=== PATIENT | female | born 1980 | race Caucasian/White ===

== ENCOUNTER 2016-08-26 20:38 | Emergency (ER) | payer OTHER ==
[2016-08-26] MEDS ORDERED: Sodium Chloride 0.9% 1,000 ML IV STA (21:15)
--- NOTE | 2016-08-26 21:29 | C.PDOC ---
History Of Present Illness Patient is a 35 year old female with a history of thyroid disease and childhood asthma who presents to the ER with a complaint of general weakness for the past 4 days. Patient states the first day she began having non-bloody, non-billious vomiting and non-bloody diarrhea that stopped yesterday. Patient also reports having intermittent, scattered abdominal pain and a subjective feeling of hot and cold flashes. Patient notes she is currently menstruating and it is at it's normal time and flow. Denies fever or sick contact. Time Seen by Provider: 08/26/16 20:52 Chief Complaint (Nursing): Abdominal Pain History Per: Patient History/Exam Limitations: no limitations Onset/Duration Of Symptoms: Days (4), Intermittent Episodes (Abdominal pain) Associated Symptoms: Vomiting (non-billious, non-bloody), Diarrhea (non-bloody) . denies: Fever Last Menstral Period: Currently mentruating Past Medical History Reviewed: Historical Data, Nursing Documentation, Vital Signs Vital Signs: Last Vital Signs Temp 97.8 F 08/26/16 20:48 Pulse 78 08/26/16 20:48 Resp 18 08/26/16 20:48 BP 126/80 08/26/16 20:48 Pulse Ox 98 08/26/16 21:39 - Medical History PMH: Asthma, Hypothyroidism Surgical History: Tonsillectomy Family History: States: Unknown Family Hx - Social History Hx Tobacco Use: No Hx Alcohol Use: No Hx Substance Use: No - Immunization History Hx Tetanus Toxoid Vaccination: No Hx Influenza Vaccination: No Hx Pneumococcal Vaccination: No Review Of Systems Constitutional: Negative for: Fever Gastrointestinal: Positive for: Vomiting (non-bloody, non-billious), Diarrhea ( Non-bloody) Physical Exam - Physical Exam Additional Physical Exam Comments: Constitutional: No acute distress. Head: Normocephalic. Atraumatic. Eyes: PERRL. ENT: Dry mucous membranes. Neck: Supple. Cardiovascular: Regular rate. Radial pulses 2+ bilaterally. Chest: No tenderness. Respiratory: Clear to auscultation bilaterally. GI: Soft. No tenderness. Nondistended. Back: No tenderness. Musculoskeletal: No tenderness or swelling of extremities. Skin: No rash. Neurologic: Alert, no focal deficit. ED Course And Treatment - Laboratory Results Result Diagrams: 08/26/16 21:47 08/26/16 21:47 O2 Sat by Pulse Oximetry: 98 Medical Decision Making Medical Decision Making: Will hydrate, zofran PO challenge will be ordered. Will check labs and urine, no current indication for imaging at this moment, normal vital signs, no abdominal tenderness. Labs unremarkable, patient in no distress and states feels better. PO challenged. Will discharge, continue PO hydration, return to ER for worsening weakness, lethargy, vomiting, dyspnea, abdominal pain, or any other problem. Disposition - Disposition Referrals: Jameson Saucedo MD [Primary Care Provider] - Disposition: HOME/ ROUTINE Disposition Time: 23:36 Condition: STABLE Prescriptions: Ondansetron ODT [Zofran ODT] 4 mg PO Q8 #12 odt Instructions: Gastroenteritis (ED) - Clinical Impression Clinical Impression: Diarrhea, Vomiting - Scribe Statement The provider has reviewed the documentation as recorded by the Scribe Ayush Tovar All medical record entries made by the Scribe were at my direction and personally dictated by me. I have reviewed the chart and agree that the record accurately reflects my personal performance of the history, physical exam, medical decision making, and the department course for this patient. I have also personally directed, reviewed, and agree with the discharge instructions and disposition.
[2016-08-26 21:52] LABS: BASO % 0.7 % (0.0-2.0); EOS # 0.3 K/uL (0.0-0.7); EOS % 6.3 % (0.0-4.0); HEMATOCRIT 38.2 % (34.0-47.0); LYMPH # 1.9 K/uL (1.0-4.3); LYMPH % 36.3 % (20.0-40.0); MEAN CELL VOLUME 82.4 fL (81.0-99.0); MEAN CORPUSCULAR HEMOGLOBIN 26.4 pg (27.0-31.0); MEAN PLATELET VOLUME 8.7 fL (7.2-11.7); MONO # 0.4 K/uL (0.0-0.8); RED CELL DISTRIBUTION WIDTH 14.5 % (11.5-14.5); WHITE BLOOD COUNT 5.2 K/uL (4.8-10.8)
[2016-08-26 21:58] LABS: CHLORIDE 101 mmol/L (98-107)
[2016-08-26 21:59] LABS: RBC URINE 5 /hpf (0-3); URINE BACTERIA RARE (<OCC); URINE BILIRUBIN NEGATIVE (NEGATIVE); URINE BLOOD 1+ (NEGATIVE); URINE COLOR Yellow (YELLOW); URINE GLUCOSE (UA) NORMAL (Normal); URINE KETONE NEGATIVE (NEGATIVE); URINE LEUKOCYTE ESTERASE NEG Leu/uL (Negative); URINE PROTEIN NEGATIVE (NEGATIVE); URINE UROBILINOGEN NORMAL mg/dL (0.2-1.0); WBC URINE 1 /hpf (0-5)
[2016-08-26 21:59] LABS: POTASSIUM 4.4 mmol/L (3.6-5.2); SODIUM 141 mmol/L (132-148)
[2016-08-26 22:01] LABS: ALB/GLOB RATIO 1.3 (1.0-2.1); ALKALINE PHOSPHATASE 32 U/L (38-126); AST/SGOT 31 U/L (14-36); BILIRUBIN,TOTAL 0.5 mg/dL (0.2-1.3); CARBON DIOXIDE 25 mmol/L (22-30); GFR AFRICAN-AMERICAN > 60; TOTAL PROTEIN 7.4 g/dL (6.3-8.3)
[2016-08-26 22:02] LABS: ALT/SGPT 20 U/L (9-52); BLOOD UREA NITROGEN 10 mg/dL (7-17); CALCIUM 8.4 mg/dl (8.6-10.4); GLUCOSE,RANDOM 123 mg/dL (65-105)
[2016-08-26] MEDS ORDERED: Sodium Chloride 0.9% 1,000 ML ONE (22:15)
[2016-08-27 00:05] VITALS: BP 120/80; PULSE 80; RESP 14; TEMP 98; O2SAT 99
== END 2016-08-27 00:05 | disposition home or self-care (01) ==
LOC: SUPCPDRO 20:38 → C.ER 20:38
DX: R11.10 Vomiting, unspecified (principal); R19.7 Diarrhea, unspecified
CPT/HCPCS: 80053; 81001; 83690; 84703; 85025; 96361; 96374; 99285; J2405; J7040